=== PATIENT | male | born 1935 | race American Indian/Alaskan Native ===

== ENCOUNTER 2017-02-04 07:42 | Day surgery (SDC) | payer MEDICARE ==
[2017-02-04] MEDS ORDERED: NACL 0.9% 500 ML 500 ML IV SCH (08:00)
[2017-02-04 08:25] LABS: Basophils % (Auto) 0.7 % (0.0-1.8); Eosinophils % (Auto) 2.9 % (0.0-4.3); Hematocrit 36.8 % (35.5-45.6); Hemoglobin 11.9 gm/dl (11.8-15.2); Mean Corpuscular HGB Conc 32 % (32-34); Mean Corpuscular Volume 79 fl (84-94); Platelet Count 218 K/mm3 (140-440); Red Blood Count 4.65 M/mm3 (3.65-5.03); Red Cell Distribution Width 16.2 % (13.2-15.2); White Blood Count 8.3 K/mm3 (4.5-11.0)
[2017-02-04 08:29] LABS: Mean Corpuscular Hemoglobin 26 pg (28-32)
[2017-02-04 08:34] LABS: INR 1.25 (0.87-1.13)
[2017-02-04 08:37] LABS: Anion Gap 18 mmol/L; BUN/Creatinine Ratio 17.27; Blood Urea Nitrogen 19 mg/dL (9-20); Calcium 9.5 mg/dL (8.4-10.2); Carbon Dioxide 28 mmol/L (22-30); Chloride 99.8 mmol/L (98-107); Glucose 110 mg/dL (75-100); Potassium 4.5 mmol/L (3.6-5.0); Sodium 141 mmol/L (137-145)
[2017-02-04] MEDS ORDERED: ECOTRIN PO ONE (09:00)
[2017-02-04] MEDS ORDERED: SUBLIMAZE ONE (10:35)
[2017-02-04] MEDS ORDERED: VERSED ONE (10:35)
[2017-02-04] MEDS ORDERED: HEPARIN/NS 5000 UNIT/500ML(CATH LAB) 1,500 ML IR ONE (10:35)
[2017-02-04] MEDS ORDERED: HEPARIN 10,000 UNITS/10 ML ONE (10:35)
[2017-02-04] MEDS ORDERED: NITROGLYCERIN SYRINGE 3 ML ONE (10:36)
[2017-02-04] MEDS ORDERED: XYLOCAINE 2% INFILTRATI ONE (10:36)
[2017-02-04] MEDS ORDERED: NACL 0.9% 1000 ML 1,000 ML IV SCH (12:00)
[2017-02-04] MEDS ORDERED: CATAPRES PO PRN (12:01)
--- NOTE | 2017-02-04 12:01 | Discharge Summary ---
Short Stay Discharge Plan Activity: advance as tolerated Weight Bearing Status: Partial Weight Bearing Diet: low fat, low cholesterol, low salt Wound: keep clean and dry Special Instructions: smoking cessation, no heavy lifting (3 days) Follow up with: SHAWN CATHERINE MD [Staff Physician] - 7 Days
--- NOTE | 2017-02-04 13:04 | Cardiac Catherization Report ---
REASON FOR PROCEDURE: Shortness of breath and chest pain. PROCEDURES PERFORMED: 1. Right heart catheterization. 2. Left heart catheterization and left ventricular angiography. 3. Selective right and left coronary angiography. The patient was prepped and draped in a sterile fashion after informed consent. The right femoral artery and vein were entered using the Seldinger technique. A 6-Malian sheath was placed in the artery and an 8 Malian sheath in the vein. A Eastsound-Natasha catheter was then advanced to the pulmonary artery position. Cardiac output was measured using the thermodilution method. A pigtail catheter was then advanced into the left ventricle. Simultaneous left and right heart filling pressures were measured. The Eastsound-Natasha catheter was then withdrawn and right heart filling pressures were recorded. Left ventricular angiography was then performed following which the pigtail catheter was then withdrawn across the aortic valve and transaortic pressure gradient was recorded. Selective left and right coronary angiography was then performed using #4 right and left Jonas catheters. The catheters were withdrawn, sheath removed, and hemostasis in the anterior position achieved using an Angio-Seal device and in the venous position using manual compression. The patient was returned to the postprocedure unit in stable condition. There were no complications. FINDINGS: HEMODYNAMICS: The mean right atrial pressure was 20. Right ventricular pressure was 60/20. Pulmonary artery pressure was 60/28. Pulmonary artery wedge pressure was 25 with V waves of 40. Left ventricular end-diastolic pressure was 25. Cardiac output measurement was unreliable due to suboptimal equipment. Ascending aortic pressure was 180/86. There was no significant pressure gradient on pullback across the aortic valve. CORONARY ANGIOGRAPHY: The left main coronary artery was angiographically normal. The left anterior descending artery contained mild luminal irregularities in its mid segment; otherwise this vessel and its diagonal branches were angiographically normal. The circumflex artery and its obtuse marginal branches were angiographically normal. The right coronary artery was dominant. This vessel contained mild ostial narrowing, and mild luminal irregularities in its mid segment. Otherwise, this vessel and its branches were angiographically normal. Left ventricular systolic function was well preserved with ejection fraction of 55%. No significant regional wall motion abnormalities were noted in the CATHERINE projection. CONCLUSION: 1. Moderately severe increase in right and left heart filling pressures, near equalization off right and left heart filling pressures. 2. Moderate to severe pulmonary hypertension. 3. No significant coronary artery disease, essentially angiographically normal coronary arteries. 4. Well preserved left ventricular systolic function, ejection fraction of 55%. RECOMMENDATIONS: 1. Medical therapy and risk factor modification. 2. Further evaluation of chronic pulmonary disease is recommended. 3. Prominent V waves on pulmonary artery wedge pressure waveform suggest significant mitral regurgitation. JOB# [id number] CA/NTS
[2017-02-04] MEDS ORDERED: ULTRAM PO ONE (13:19)
[2017-02-04] MEDS ORDERED: ULTRAM ONE (13:19)
[2017-02-04 15:47] VITALS: BP 154/88
== END 2017-02-04 16:05 | disposition home or self-care (01) ==
LOC: CATHLABREC 07:42
PROVIDERS: ATTEND Internal Medicine Cardiovascular Disease
DX: I27.2 Other secondary pulmonary hypertension (principal); E78.5 Hyperlipidemia, unspecified; I10 Essential (primary) hypertension; I48.91 Unspecified atrial fibrillation; Z96.649 Presence of unspecified artificial hip joint; Z98.890 Other specified postprocedural states; Z87.891 Personal history of nicotine dependence; Z72.89 Other problems related to lifestyle; Z95.0 Presence of cardiac pacemaker; Z82.49 Family history of ischemic heart disease and other diseases of the circulatory system
CPT/HCPCS: 36415; 80048; 82962; 85025; 85610; 85730; 93005; 93010; 93460; C1760; C1894; J1644; J2250; J3010; J7040; Q9967